=== PATIENT | female | born 1980 | race Caucasian/White ===

== ENCOUNTER 2017-09-04 08:35 | Emergency (ER) | payer BC, OTHER ==
[~2017-09-04] VITALS: Ht 177.8 cm; Wt 70.0 kg
[~2017-09-04 08:35] MED LIST: BCPILLS PO; KFLUNK; SERT-234 PO; SERT50TA PO
[2017-09-04 08:38] VITALS: TEMP 36.3; Ht 177.8 cm; Wt 70.0 kg
[2017-09-04] MEDS ORDERED: OXYCODONE/ACETAMINOPHEN 5-325 TAB PO STA (09:09)
[2017-09-04] MEDS ORDERED: CETI10TA84 PO (09:46)
[2017-09-04] MEDS ORDERED: METH-307 PO (09:46)
[2017-09-04] MEDS ORDERED: MULT-506 PO (09:46)
[2017-09-04] MEDS ORDERED: SERT-234 PO (09:46)
--- NOTE | 2017-09-04 10:08 | DIAGNOSTIC IMAGING REPORT ---
L-SPINE MIN 4 VIEWS ROUTINE CLINICAL HISTORY: Low back pain. Trauma. COMPARISON STUDY: No previous studies for comparison. FINDINGS: There is an S1 spina bifida occulta. No fractures are visualized. There is a grade 1 spondylolisthesis of L5 on S1.. IMPRESSION: No fractures identified. Electronically signed by: Faustino Segura M.D. 09/04/2017 10:07 AM Dictated Date/Time: 09/04/2017 10:06 AM
[2017-09-04] MEDS ORDERED: KETO10TA PO (10:56)
[2017-09-04] MEDS ORDERED: PRED20TA2 PO (10:56)
[2017-09-04 11:21] VITALS: BP 110/66; PULSE 50; O2SAT 97
--- NOTE | 2017-09-04 17:24 | EMERGENCY ROOM VISIT NOTE ---
ED Visit Note First contact with patient: 08:46 Chief Complaint: Nerve pain in the right hip. History of Present Illness: Ms. Cook is a 36-year-old white female who ambulates into the ED complaining of lumbar back pain. Historically patient reports she has no significant back disease or any recent trauma. She reports she has been having ongoing back pain since , 2 months ago. She was seen at her PCPs office approximately 14 days ago and reports that she was prescribed prednisone and Flexeril. She reports she immediately started having improved discomfort with these medications. She reports she finished her prednisone 2-3 days ago. Patient reports this morning she was picking up a laundry basket and had acute recurrence of lumbar back pain and right hip pain. This occurred approximately 2 hours before she arrived in the emergency department. Since that time her pain has been constant. She difficulty discussed making 1 description of her pain but does report it is sharp, stabbing, throbbing and burning. She places her discomfort in the L5-S1. Her pain radiates laterally to the right hip and extends down the posterior aspect of the leg to the knee. At its onset she reports her discomfort was 10/10 and currently she reports her discomfort is 4/ 10. Her pain worsens with sitting, waist flexion and extension and left lateral bending. She has not identified any alleviating factors related to her pain. She has not taken any medications for pain prior to arrival at the hospital. Associated with her pain she reports she was having some paresthesias throughout the entire extremity; when I questioned her about weakness she felt there might have been a little weakness with ambulation but had no difficulty with ambulation. She denies any new direct or repetitive trauma to the back, fevers, chills, sweats, skin eruptions, skin color changes, abdominal pain, nausea, vomiting, urinary symptoms, hematuria, genital paresthesias, bowel and bladder dysfunction. Review of Systems: As noted above in history of present illness. All body systems were reviewed and found to be negative as noted above. Past Medical History: As previously noted, anorexia. Current Medications: Zoloft, multivitamins, Zyrtec, Robaxin. Allergies to Medications: Patient denies. Social History: Patient is currently employed; she feels safe in her home environment; she denies tobacco and alcohol use. Physical Examination: Vital Signs: Date Time Temp Pulse Resp B/P (MAP) Pulse Ox O2 Delivery O2 Flow Rate FiO2 09/04/17 11:21 50 14 110/66 97 09/04/17 10:15 60 16 98 Room Air 09/04/17 08:38 36.3 54 98 115/68 96 Room Air GENERAL: 36-year-old female in moderate distress due to pain, nontoxic-appearing , afebrile and hemodynamically stable. NEUROLOGICAL: Awake, alert and oriented to person, place and time. Answering questions appropriately and following commands. Normal gait. Good hand eye coordination. No focal motor or sensory deficits. SKIN: Warm, dry and pink. No soft tissue eruptions or trauma noted. HEENT: Atraumatic and normocephalic. BACK: No tenderness over the bony thoracic and lumbar spine. No tenderness or spasm throughout the paraspinous muscles. No CVA tenderness. Negative straight leg raise test. THORAX: Lungs sounds are clear to auscultation and equal bilaterally with symmetrical chest wall. ABDOMEN: Flat, soft and nontender. Positive bowel sounds in all quadrants. No guarding, rigidity or organomegaly. LOWER EXTREMITIES: Moves extremities well on command and with purpose. 5/5 muscle strength in all movements of the hips, knees and ankles. 2+ patellar and Achilles deep tendon reflexes intact and equal bilaterally. She was able to distinguish light sensations through all dermatomes of the spine. No calf tenderness or cords. ED Course: Patient is assessed as noted above. Patient's medication list was reviewed. Patient was given 1 Percocet 5/325 mg tablet by mouth for pain. Lumbar Spine X-Rays: Were reviewed by myself and read by the radiologist showing S1 spina bifida occulta. No fractures. Grade 1 spondylolithiasis at L5 -S1. Patient was educated about today's findings and instructed on her treatment plan ; she verbalizes understanding and agreement with this plan. Clinical Impression: Lumbar back pain with radiculopathy affecting the right lower extremity. Grade 1 spondylolisthesis. Disposition: Patient discharged home in stable condition accompanied by her ; prior to departure she was reassessed and subjectively reported she was feeling better and rated her discomfort 2/10. Plan: Comfort measures were discussed with the patient including alternating acetaminophen and Toradol every 3 hours for pain, ice, proper moving and lifting techniques. Patient was prescribed prednisone 60 mg once a day for 5 days. Patient was encouraged to follow-up with PCP for recheck and possible referral to physical therapy, back specialist and/or MRI. Patient was encouraged to return the ED for worsening/uncontrolled pain, fevers , numbness/tingling of the rectal or genital areas, bowel and bladder dysfunction, lower extremity weakness or any new/concerning symptoms.
[2017-09-05] MEDS ORDERED: PRED20TA2 PO (05:45)
[2017-09-05] MEDS ORDERED: KETO10TA PO (05:45)
[2017-09-05] MEDS ORDERED: SERT100T PO (05:45)
[2017-09-07] MEDS ORDERED: KETO10TA PO (07:54)
[2017-09-07] MEDS ORDERED: HYDR-4383 PO (07:55)
[2017-09-07] MEDS ORDERED: NRN/300 PO (07:56)
== END 2017-09-04 11:22 | disposition home or self-care (01) ==
LOC: C.EDB 08:36
DX: M43.17 Spondylolisthesis, lumbosacral region (principal); M54.17 Radiculopathy, lumbosacral region

== ENCOUNTER 2017-09-05 05:17 | Inpatient (IN) | payer OTHER ==
[~2017-09-05] VITALS: Ht 172.7 cm; Wt 63.2 kg
[~2017-09-05 05:17] MED LIST changes: -BCPILLS PO; +CETI10TA84 PO; +KETO10TA PO; -KFLUNK; +METH-307 PO; +MULT-506 PO; +PRED20TA2 PO; -SERT50TA PO
[2017-09-05] MEDS ORDERED: MoRPHine SULFATE 4 MG/ML 1 ML CARP\\VIAL IV STA ×4 (05:30→13:09)
[2017-09-05] MEDS ORDERED: ONDANSETRON INJ 2 MG/ML 2 ML VIAL IV STA (05:30)
[2017-09-05 05:43] LABS: BASO % 0.3 %; BASO ABS # 0.04 K/uL (0-0.2); EOS % 0.2 %; EOS ABS # 0.03 K/uL (0-0.5); HEMATOCRIT 39.6 % (37-47); HEMOGLOBIN 13.6 g/dL (12.0-16.0); IG# 0.03 K/uL (0.00-0.02); LYMPH % 18.9 %; LYMPH ABS # 2.29 K/uL (1.2-3.4); MEAN CELL VOLUME 92.3 fL (80-100); MEAN CORPUSCULAR HEMOGLOBIN 31.7 pg (25-34); MEAN CORPUSCULAR HGB CONC 34.3 g/dl (32-36); MEAN PLATELET VOLUME 9.9 fL (7.4-10.4); MONO % 9.3 %; MONO ABS # 1.13 K/uL (0.11-0.59); NEUT % 71.1 %; NEUT ABS # 8.57 K/uL (1.4-6.5); PLATELET COUNT 236 K/uL (130-400); RED CELL DISTRIBUTION WIDTH CV 12.6 % (11.5-14.5); RED CELL DISTRIBUTION WIDTH SD 42.5 fL (36.4-46.3); WHITE BLOOD COUNT 12.09 K/uL (4.8-10.8)
[2017-09-05] MEDS ORDERED: PRED20TA2 PO (05:45)
[2017-09-05] MEDS ORDERED: KETO10TA PO (05:45)
[2017-09-05] MEDS ORDERED: SERT100T PO (05:45)
[2017-09-05 05:57] LABS: CALCIUM 9.2 mg/dl (8.5-10.1); CREATININE 0.95 mg/dl (0.60-1.20); POTASSIUM 2.9 mmol/L (3.5-5.1)
[2017-09-05] MEDS ORDERED: KETOROLAC TROMETHAMINE 30 MG/ML VIAL IV STA (06:00)
[2017-09-05] MEDS ORDERED: POTASSIUM CHLORIDE 10 MEQ TABCR PO STA (06:01)
--- NOTE | 2017-09-05 07:55 | DIAGNOSTIC IMAGING REPORT ---
LUMBAR SPINE W/O CONTRAST CLINICAL HISTORY: 36 years-old Female with severe LBP down right leg, dif walking. Acute low back pain with radiation into the right lower extremity COMPARISON: Lumbar spine radiographs 09/04/2017. TECHNIQUE: Multiplanar, multi sequence MRI of the lumbar spine was performed without intravenous contrast. FINDINGS: There is no focal bone marrow edema, acute fracture or subluxation. 2.4 x 2.2 cm partially imaged cystic lesion is noted within the region of the right adnexum suggesting ovarian follicle. Mild amount of fluid is also seen within the endometrial canal with mild to moderate free pelvic fluid, notably within the cul-de-sac. Mild urinary bladder distention. No adenopathy or aortic aneurysm identified. Signal within the visualized thoracic spinal cord is unremarkable. Conus medullaris terminates at the T12-L1 level. 1 mm lipoma of the filum terminale is noted. No definite evidence of cord tethering. T12-L1: No central canal or neural foraminal stenosis. L1-L2: No central canal or neural foraminal stenosis. L2-L3: No central canal or neural foraminal stenosis. L3-L4: Mild disc desiccation with posterior annular disc bulge and broad-based central disc protrusion which flattens the ventral thecal sac and causes mild central canal narrowing. This abuts the bilateral L4 nerve roots without significant foraminal narrowing. L4-L5: Mild disc desiccation with small circumferential annular disc bulge. Additionally, there is a right paracentral/right lateral recess disc extrusion which extends 6 mm caudally to level of the mid L5 vertebral body nicely seen on image 6 series 3 and image 19 series 6 measuring up to 10 x 6 mm in transverse and AP dimension. These findings cause flattening of the ventral thecal sac without significant central canal narrowing. There is severe right lateral recess stenosis with abutment and displacement of the right L5 nerve root. Additionally, there is resultant mild bilateral foraminal narrowing. L5-S1: Small posterior disc bulge flattens the ventral thecal sac without significant central canal or left foraminal narrowing. There is mild right foraminal stenosis. IMPRESSION: 1. Small circumferential annular disc bulge at L4-L5 with right paracentral/right lateral recess disc extrusion flattens the ventral thecal sac without significant central canal narrowing. This does however cause severe right lateral recess stenosis with abutment and displacement of the right L5 nerve root. Mild bilateral foraminal stenosis is also present at this level. 2. Mild central canal narrowing at L3-L4 secondary to small posterior disc bulge with central broad-based disc protrusion. 3. Small posterior disc bulge at L5-S1 causes mild right foraminal narrowing. 4. 1 mm lipoma of the filum terminale. 5. Partially imaged cystic lesion of the right adnexum measuring up to 2.4 cm suggests dominant follicle with likely physiologic associated free pelvic and endometrial fluid. The above report was generated using voice recognition software. It may contain grammatical, syntax or spelling errors. Electronically signed by: Clyde Kemp M.D. 09/05/2017 7:54 AM Dictated Date/Time: 09/05/2017 7:29 AM
[2017-09-05] MEDS ORDERED: MoRPHine SULFATE 2 MG/ML CARP ONE ×3 (08:06→13:17)
[2017-09-05] MEDS ORDERED: DEXAMETHASONE INJ 10 MG in SYRINGE 0 ML IV STA (08:13)
[2017-09-05] MEDS ORDERED: DEXAMETHASONE **PF** INJ 10 MG/ML VIAL ONE (08:19)
--- NOTE | 2017-09-05 09:22 | EMERGENCY ROOM VISIT NOTE ---
ED Visit Note First contact with patient: 08:28 Patient was signed out to me at shift change by Rema Carnes PA-C. This was pending MRI results of the lumbar spine. Results do reveal findings consistent with that of the patient's clinical presentation. I did elect to discuss this with the on-call shipping and receiving specialist, Dr. La. In addition to the pain medication provided earlier, I did give her additional morphine. She does have difficulty in ambulating secondary to the amount of pain she is experiencing in the low back radiating down her right leg. Upon my reexamination she was found to be neurovascularly intact. After several rounds of pain medication intravenously, the patient was still experiencing a large amount of pain. It was identified that the patient likely would benefit from inpatient management of her pain and presentation here today. Dr. La (shipping and receiving specialist) came to evaluate the patient and admitted the patient for further evaluation and management.
[2017-09-05] MEDS ORDERED: HYDROmorphone INJ 1 MG/ML SYR IV PRN (13:15)
[2017-09-05] MEDS ORDERED: OXYCODONE/ACETAMINOPHEN 5-325 TAB PO PRN (13:15)
[2017-09-05 13:45] VITALS: O2SAT 96; Ht 172.7 cm; Wt 63.2 kg
[2017-09-05] MEDS: ACETAMINOPHEN IV 1,000 MG in EMPTY BAG 0 ML IV SCH ×2 (15:15→21:24)
[2017-09-05 15:52] VITALS: BP 108/65; PULSE 75; TEMP 36.8; O2SAT 96
[2017-09-05] MEDS: LACTATED RINGER'S 1000ML 1,000 ML IV SCH (16:42)
[2017-09-05] MEDS: DEXAMETHASONE INJ 8 MG in SYRINGE 0 ML IV SCH ×2 (16:43→23:36)
[2017-09-05] MEDS: METHOCARBAMOL 750 MG TAB PO SCH ×3 (17:14→23:36)
--- NOTE | 2017-09-05 17:30 | HISTORY & PHYSICAL EXAMINATION ---
DATE OF ADMISSION: 09/05/2017 CHIEF COMPLAINT: Back pain, lower extremity difficulty with radicular right leg pain. HISTORY OF PRESENT ILLNESS: Ely is delightful, I know her from the hospital. Her pain was ____ severe 04/19, came to Emergency Room, unable to sleep, unable to ambulate and I have admitted her to the hospital here today in the afternoon. She was working out with some exercise equipment ____ few weeks ago, progressed increasing back and lower extremity difficulty. She was lifting laundry yesterday when the symptoms became full blown. PAST MEDICAL HISTORY: Listed. SOCIAL HISTORY: Nonsmoker, non-ET[employer] user. , lives with family. MEDICATIONS: Listed. REVIEW OF SYSTEMS: Denies any blurred vision, double vision, tinnitus, vertigo. Denies chest pain, palpitations. No angina, wheezing. No nausea, vomiting. No urgency or frequency. No loss of bowel and bladder function. OBJECTIVE: VITAL SIGNS: Blood pressure 113/72, pulse regular at 52 beats per minute, respirations 16, afebrile. SKIN/INTEGUMENTARY: Normal. NECK: Supple. Pharynx midline. CARDIAC: Normal S1, S2. No S3. LUNGS: Clear. ABDOMEN: Soft, nontender, no rigidity. She has back pain, lower extremity difficulty, pain with straight leg raising on the right. She has weakness of great toe 4/5 on the right, 5/5 on the left. She has decreased knee jerk reflex, 1/4 on the right, 2/4 on the left. Images demonstrate a large disc herniation of lumbar spine L4-L5. ASSESSMENT: Delightful young lady who is 36 with a disk herniation, lumbar spine with great toe weakness. Otherwise healthy. DISPOSITION: Includes instructions, precautions, education, hospital admission, IV medication ____ her on some Decadron, Toradol, Neurontin and medication for breakthrough pain. Pending pain management see her and she might be a good candidate for some outpatient epidural steroid injections and we will try to manage her conservatively. There is a chance that she will need surgical intervention.
[2017-09-05] MEDS: DOCUSATE SODIUM 100 MG CAP PO SCH (21:23)
[2017-09-05] MEDS: GABAPENTIN 300 MG CAP PO SCH (21:23)
[2017-09-05] MEDS: KETOROLAC TROMETHAMINE 10 MG TAB PO PRN (21:24)
[2017-09-05 23:02] VITALS: BP 100/62; PULSE 78; TEMP 36.3; O2SAT 94
[2017-09-06] MEDS: LACTATED RINGER'S 1000ML 1,000 ML IV SCH ×2 (03:22→17:08)
[2017-09-06] MEDS: METHOCARBAMOL 750 MG TAB PO SCH ×3 (03:31→12:46)
--- NOTE | 2017-09-06 04:18 | EMERGENCY ROOM VISIT NOTE ---
History First contact with patient: 05:26 Chief Complaint: OTHER COMPLAINT Stated Complaint: NERVE DAMAGE,TINGLING EVERYWHERE History of Present Illness The patient is a 36 year old female who presents to the Emergency Room with complaints of severe back pain that radiates down her right leg now having difficulty walking on this leg for the past day. She describes the pain as severe, 10 out of 10 worse with movement and better with rest. Patient was unable to sleep last night secondary to the pain. Patient was seen here yesterday and given prednisone and Toradol. Patient states just prior to getting here, she started feeling tingly all over and now this is just located to her right lower leg. Patient was quite anxious appearing when I did evaluate her. She was hyperventilating and almost in tears secondary to the pain. Patient has had a history of back pain but nothing down the leg or the severe in the past. Patient states yesterday she was lifting up laundry when the symptoms started. There was no fall or trauma. Patient denies chest pain, dyspnea, fever, chills, IV drug abuse, loss of bowel or bladder control, saddle anesthesia, leg swelling, numbness, abdominal pain. No chance of . Review of Systems An 10 system review of systems was completed with positives and pertinent negatives listed in the HPI. Past Medical/Surgical History Medical Problems: (1) Lumbar disc herniation Anorexia, back pain Social History Smoking Status: Never Smoker Smokeless Tobacco Use: No Alcohol Use: none Drug Use: none Marital Status: Housing Status: lives with family Current/Historical Medications Scheduled Cetirizine (Zyrtec), 10 MG PO DAILY Methocarbamol (Robaxin), 750 MG PO Q4 Multivitamin (Multivitamin), 1 TAB PO DAILY Prednisone (Prednisone Tab), 60 MG PO DAILY Sertraline Hcl (Zoloft), 100 MG PO DAILY Scheduled PRN Ketorolac Tromethamine (Toradol), 10 MG PO Q6H PRN for Pain Physical Exam Vital Signs Date Time Temp Pulse Resp B/P (MAP) Pulse Ox O2 Delivery O2 Flow Rate FiO2 09/05/17 12:10 52 09/05/17 12:00 51 16 110/53 96 Room Air 09/05/17 11:00 50 12 115/79 95 Room Air 09/05/17 10:29 55 16 111/64 95 Room Air 2/26/18 09:00 52 14 94/62 99 Room Air 09/05/17 08:00 49 12 102/69 99 Room Air 09/05/17 07:25 50 12 106/68 95 Room Air 09/05/17 06:25 38 09/05/17 06:17 52 12 100 Nasal Cannula 2.0 09/05/17 06:08 48 09/05/17 06:01 99/65 09/05/17 05:53 45 09/05/17 05:47 49 16 98 09/05/17 05:42 113/72 09/05/17 05:42 48 16 113/72 99 Nasal Cannula 4.0 09/05/17 05:40 79 Room Air 09/05/17 05:33 52 09/05/17 05:30 36.6 51 20 116/67 100 Room Air 09/05/17 05:22 116/67 Physical Exam VITALS: Vitals are noted on the nurse's note and reviewed by myself. Vital signs stable. GENERAL: White female writhing in pain, in no acute distress, nondiaphoretic, well-developed well-nourished. SKIN: Capillary reflex less than 2 seconds. HEENT: Normocephalic. PERRLA. EOMI. Nares patent. Mucous membranes moist. Neck is supple without nuchal rigidity. HEART: Regular rate and rhythm without murmurs gallops or rubs. LUNGS: Clear to auscultation bilaterally without wheezes, rales or rhonchi. No retractions or accessory muscle use. ABDOMEN: Positive bowel sounds x 4. Normal tympanic percussion. Soft, nontender, without masses or organomegaly. Ravi sign negative. No guarding or rebound tenderness. MUSCULOSKELETAL: No gross musculoskeletal defects. No pedal edema. No calf tenderness. No thoracic or lumbar tenderness on exam. Positive straight leg raise on the right. Negative on the left. Patient can plantarflex and dorsiflex. Patient states she is unable to ambulate secondary to the pain. NEURO: Patient was alert and oriented to person place and time. Normal sensation to light and sharp touch. Deep tendon reflexes 2+ patella and Achilles bilaterally. No focal neurological deficits. Medical Decision & Procedures Laboratory Results 09/05/17 05:32 Red Blood Count 4.29, Mean Corpuscular Volume 92.3, Mean Corpuscular Hemoglobin 31.7, Mean Corpuscular Hemoglobin Concent 34.3, Mean Platelet Volume 9.9, Neutrophils (%) (Auto) 71.1, Lymphocytes (%) (Auto) 18.9, Monocytes (%) (Auto) 9.3, Eosinophils (%) (Auto) 0.2, Basophils (%) (Auto) 0.3, Neutrophils # (Auto) 8.57, Lymphocytes # (Auto) 2.29, Monocytes # (Auto) 1.13, Eosinophils # (Auto) 0.03, Basophils # (Auto) 0.04 09/05/17 05:32 Test 09/05/17 05:32 09/05/17 13:00 White Blood Count 12.09 K/uL (4.8-10.8) Red Blood Count 4.29 M/uL (4.2-5.4) Hemoglobin 13.6 g/dL (12.0-16.0) Hematocrit 39.6 % (37-47) Mean Corpuscular Volume 92.3 fL (80-100) Mean Corpuscular Hemoglobin 31.7 pg (25-34) Mean Corpuscular Hemoglobin Concent 34.3 g/dl (32-36) Platelet Count 236 K/uL (130-400) Mean Platelet Volume 9.9 fL (7.4-10.4) Neutrophils (%) (Auto) 71.1 % Lymphocytes (%) (Auto) 18.9 % Monocytes (%) (Auto) 9.3 % Eosinophils (%) (Auto) 0.2 % Basophils (%) (Auto) 0.3 % Neutrophils # (Auto) 8.57 K/uL (1.4-6.5) Lymphocytes # (Auto) 2.29 K/uL (1.2-3.4) Monocytes # (Auto) 1.13 K/uL (0.11-0.59) Eosinophils # (Auto) 0.03 K/uL (0-0.5) Basophils # (Auto) 0.04 K/uL (0-0.2) RDW Standard Deviation 42.5 fL (36.4-46.3) RDW Coefficient of Variation 12.6 % (11.5-14.5) Immature Granulocyte % (Auto) 0.2 % Immature Granulocyte # (Auto) 0.03 K/uL (0.00-0.02) Anion Gap 13.0 mmol/L (3-11) Est Creatinine Clear Calc Drug Dose 80.9 ml/min Estimated GFR () 88.7 Estimated GFR (Non- 76.5 BUN/Creatinine Ratio 12.3 (10-20) Calcium Level 9.2 mg/dl (8.5-10.1) Human Chorionic Gonadotropin, Qual NEG (NEG) Urine Color YELLOW Urine Appearance CLEAR (CLEAR) Urine pH 7.0 (4.5-7.5) Urine Specific [place] 1.010 (1.000-1.030) Urine Protein NEG (NEG) Urine Glucose (UA) NEG (NEG) Urine Ketones NEG (NEG) Urine Occult Blood NEG (NEG) Urine Nitrite NEG (NEG) Urine Bilirubin NEG (NEG) Urine Urobilinogen NEG (NEG) Urine Leukocyte Esterase NEG (NEG) Medications Administered Medications (Trade) Dose Ordered Sig/Sole Route Start Time Stop Time Status Last Admin Dose Admin Morphine Sulfate (MoRPHine SULFATE INJ) 4 mg NOW STAT IV 09/05/17 05:30 09/05/17 05:33 DC 09/05/17 05:39 4 MG Ondansetron HCl (Zofran Inj) 4 mg NOW STAT IV 09/05/17 05:30 09/05/17 05:33 DC 09/05/17 05:40 4 MG Ketorolac Tromethamine (Toradol Inj) 15 mg NOW STAT IV 09/05/17 06:00 09/05/17 06:01 DC 09/05/17 06:19 15 MG Potassium Chloride (Klor-Con M10) 40 meq NOW STAT PO 09/05/17 06:01 09/05/17 06:02 DC 09/05/17 06:18 40 MEQ Morphine Sulfate (MoRPHine SULFATE INJ) 2 mg STK-MED ONCE .ROUTE 09/05/17 08:06 09/05/17 08:07 DC 09/05/17 08:09 2 MG Dexamethasone Sodium Phosphate (Dexamethasone Inj Pf) 10 mg STK-MED ONCE .ROUTE 09/05/17 08:19 09/05/17 08:20 DC 09/05/17 08:22 10 MG Morphine Sulfate (MoRPHine SULFATE INJ) 2 mg STK-MED ONCE .ROUTE 09/05/17 10:30 09/05/17 10:31 DC 09/05/17 10:34 2 MG Lactated Ringer's 1,000 ml @ 75 mls/hr [id number] IV 09/05/17 13:10 10/05/17 13:09 09/06/17 03:22 75 MLS/HR ED Course Prior records/ancillary studies reviewed. Triage Nursing notes reviewed. Additional history obtained from family The patient's history was concerning for back pain. Differential diagnosis: Etiologies such as musculoskeletal, disc herniation, fracture, aortic disease, metastatic disease, cord compression, discitis, infection, renal colic, gastrointestinal, acute exacerbation of chronic back pain, sciatica, cauda equina, as well as others were entertained. Physical findings: As above. No focal neurologic findings noted. ER treatment provided: Morphine, Zofran and oxygen. Patient did desat but came out nicely on oxygen secondary to narcotics Potassium On reassessment the patient felt better. Diagnostics interpreted by me: The labs revealed mild leukocytosis. Stable H&H Hypokalemia and this was replaced orally, hyperglycemia without DKA Imaging studies: MRI pending at time of signout This appears to be consistent with lumbar radiculopathy. Patient was in severe pain and had difficulty with ambulating so imaging was ordered. Patient was not incontinent. She is able to plantarflex and dorsiflex without issue. She was neurovascularly and neurologically intact. By chart review, patient is normally bradycardic between the mid 40s to mid 50s. Patient states this is baseline for her. Case is signed at to ADILSON Kidd, pending reevaluation and MRI in stable condition. Medical Decision As above [place] Drug Monitoring Program Search Results: patient reviewed within database, no issues identified Medication Reconcilliation Current Medication List: was personally reviewed by me Blood Pressure Screening Patient's blood pressure: Normal blood pressure Impression Primary Impression: Lumbar radiculopathy, acute Additional Impressions: Hypokalemia Hyperglycemia Departure Information Referrals Fred Tripp M.D.([facility]) (PCP) Patient Instructions My [facility] Additional Instructions Problem Qualifiers
[2017-09-06] MEDS: ACETAMINOPHEN IV 1,000 MG in EMPTY BAG 0 ML IV SCH ×3 (05:43→21:13)
[2017-09-06 07:27] VITALS: BP 108/63; PULSE 51; TEMP 36.5; O2SAT 94
[2017-09-06] MEDS: KETOROLAC TROMETHAMINE 10 MG TAB PO PRN (07:46)
[2017-09-06] MEDS: DEXAMETHASONE INJ 8 MG in SYRINGE 0 ML IV SCH (08:25)
[2017-09-06] MEDS: MULTIVITAMIN TAB PO SCH (09:28)
[2017-09-06] MEDS: SERTRALINE HCL 100 MG TAB PO SCH (09:28)
[2017-09-06] MEDS: GABAPENTIN 300 MG CAP PO SCH ×3 (09:28→21:14)
[2017-09-06] MEDS: DOCUSATE SODIUM 100 MG CAP PO SCH ×2 (09:28→21:14)
[2017-09-06] MEDS: CETIRIZINE HCL 10 MG TAB PO SCH (09:29)
--- NOTE | 2017-09-06 12:56 | ORTHOPEDICS PROGRESS NOTE ---
DATE: 09/06/2017 CHIEF COMPLAINT: Back and lower extremity difficulty, working diagnosis of a disk herniation at L4-L5. She is making. She has better motion, decreased pain, better functional ability, still has neurological deficit on her great toe. Images reviewed. ASSESSMENT: Disk herniation, lumbar spine, L4-L5. DISPOSITION: We will try to treat this conservatively. We are trying to avoid an operation ____ come to surgery, but trying to keep again conservative care. Got pain medication involved, multiple medications on the floor ____ and hopefully get her discharged home tomorrow, which would be Tuesday.
--- NOTE | 2017-09-06 14:38 | Pain Management Consultation ---
Pain Management Consultation Date of Consultation Sep 06, 2017. Reason for Consultation Evaluation for interventional therapy for radicular pain Pain Location 1 - Right lateral thigh pain. 2 - Mild distal lumbar spine pain History Ely Cook. Is a 36-year-old [] who is admitted to [facility] with complaints of experiencing acute worsening of right lower extremity radicular pain that started sometime in June 2016 when she was performing exercises using a kettle ball. Her symptoms improved gradually with chiropractic treatment and use of mild [id number] analgesics and anti- inflammatory agents several days ago where she noted increased, acute onset of low back pain and right lower extremity radicular pain after she lifted to laundry baskets up a flight of stairs. Pain is located in predominantly in the right lateral thigh radiates to and posterior lateral aspect of the right calf up to the right ankle. Symptoms are characterized as burning sensation and paresthesia. Symptoms have been present with current intensity for the last 3 days. Activities that exacerbate patient's symptoms include standing up and weightbearing on the right lower extremity. Activities that alleviate patient' s symptoms include laying in supine, immobile position. Symptoms are rated as 8/10 on visual analog scale when severe and 4/10 when minimal. Current treatments include use of mild opiate analgesics, muscle relaxants and anti-inflammatory agents as well as steroid. Prior to her presentation to the emergency room active treatment and use of [id number] anti-inflammatory agents and analgesics without long-term significant efficacy. Reports mild neurological symptoms associated with the symptoms consisting of paresthesia in the right lateral thigh and weakness in dorsiflexion of the right toe. She denies any bowel bladder incontinence, saddle anesthesia, numbness, weakness or any other neurological symptoms. Past Medical: Denies any major past health history. Past Surgical: Denies any major past surgical history. 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 Q4H PRN PO 09/05/17 13:15 09/19/17 13:14 Future Hold Hydromorphone HCl (Dilaudid Inj) 1 mg Q4H PRN IV 09/05/17 13:15 09/19/17 13:14 Acetaminophen 1000 mg/Empty Bag 100 ml @ 400 mls/hr Q8 IV 09/05/17 15:15 10/05/17 15:14 09/06/17 05:43 400 MLS/HR Cetirizine HCl (zyrTEC TAB) 10 mg DAILY PO 09/06/17 09:00 10/06/17 08:59 Ketorolac Tromethamine (Toradol Tab) 10 mg Q6H PRN PO 09/05/17 13:15 09/10/17 13:14 09/06/17 07:46 10 MG Methocarbamol (Robaxin Tab) 750 mg Q4 PO 09/05/17 16:00 10/05/17 15:59 09/06/17 03:31 750 MG Multivitamins (Multivitamin Tab) 1 tab DAILY PO 09/06/17 09:00 10/06/17 08:59 Sertraline HCl (Zoloft Tab) 100 mg DAILY PO 09/06/17 09:00 10/06/17 08:59 Gabapentin (Neurontin Cap) 300 mg TID PO 09/05/17 21:00 10/05/17 20:59 09/05/17 21:23 300 MG Review of Systems Denies any recent history of fever, night sweats, unexplained weight loss, or constitutional symptoms. Otherwise, 8 point review of system has been reported to be negative. Physical Exam Height & Weight: Height 5 feet, 8.00 inches. Weight 63.200 (Kilograms) 139 (Pounds) Last Vital Signs Documentation Date Time Temp Pulse Resp B/P (MAP) Pulse Ox O2 Delivery O2 Flow Rate FiO2 09/06/17 07:27 36.5 51 16 108/63 (78) 94 Room Air 09/05/17 06:17 2.0 Exam: GENERAL: Josef Cook is awake, alert and oriented. Appears well developed. She is in no distress at the present time. Appears conditioned. BMI is 21.2 kg /m2. PSYCHIATRIC: Mood appears to be normal. Demonstrates normal affect. Short- term memory is intact. Long-term memory is intact. Judgment is intact. VASCULAR: Peripheral pulses are symmetrical in the lower extremities. No distal edema noted. MUSCULOSKELETAL: Inspection of the lumbar spine demonstrates normal curvatures. Range of motion of the lumbar spine in all planes is unremarkable. No lesions are noted in the lumbar spine region. Palpation of the spinous processes intraspinal ligaments demonstrates no pain. Provocative testing of the facet joints produces. No diffuse myofascial tenderness. No trigger points identifiable in the paraspinous musculature. Inspection of major joints of the lower demonstrates no gross deformity or edema. Active and passive range of motion of lower extremity is unrestricted. SKIN: Appears unremarkable, without any lesions NEUROLOGICAL: Sensory exam demonstrates intact sensation to light toch without deficits. Motor exam demonstrates symmetrical strength without deficit. No pathologic reflexes are noted in the lower extremities. Straight leg rasing maneuver is marginally positive on the right side at 45. Mild change is noted with Achilles noticed no linagliptin well stretch. No pathologic reflexes are noted. Gait is unremarkable. Reflexes: Patellar L +2 R +2 Ankle L +2 R +2 Laboratory Laboratory Results (Last CBC): 09/05/17 05:32 Imaging MRI: non enhanced, reports reviewed MRI Findings LUMBAR SPINE: IMPRESSION: 1. Small circumferential annular disc bulge at L4-L5 with right paracentral/right lateral recess disc extrusion flattens the ventral thecal sac without significant central canal narrowing. This does however cause severe right lateral recess stenosis with abutment and displacement of the right L5 nerve root. Mild bilateral foraminal stenosis is also present at this level. 2. Mild central canal narrowing at L3-L4 secondary to small posterior disc bulge with central broad-based disc protrusion. 3. Small posterior disc bulge at L5-S1 causes mild right foraminal narrowing. 4. 1 mm lipoma of the filum terminale. 5. Partially imaged cystic lesion of the right adnexum measuring up to 2.4 cm suggests dominant follicle with likely physiologic associated free pelvic and endometrial fluid. The above report was generated using voice recognition software. It may contain grammatical, syntax or spelling errors. Electronically signed by: Clyde Kemp M.D. 09/05/2017 7:54 AM Dictated Date/Time: 09/05/2017 7:29 AM [place] Drug Monitoring Program Search Results: patient reviewed within database Opioid Risk Assessment Risk assessment performed Assessment 1. Herniated lumbar disc with radicular pain. Recommendations 1. L4/L5 right-sided transforaminal epidural change as an outpatient. This can be performed as an outpatient immediately a day or 2 after discharge. Potential risks including infection, bleeding, nerve injury, persistent pain at the injection site, reaction to any one of the medication used for the procedure , possibly of postdural puncture headache as well as persistent symptoms after the procedure were discussed with the patient. Alternatives to this procedure were also discussed with the patient. Patient's questions were answered. Patient gave informed consent. 2. Patient can be discharged on mild opiate analgesics such as hydrocodone 5/ 325 1 tab every 6 hours as needed with 2-3 days prescription and gabapentin 300 mg p.o. 3 times daily. 3. Recommend discontinue muscle relaxant as it is not effective and patient is not experiencing any spasms present time. 4. Orders written.
[2017-09-06 15:16] VITALS: BP 103/63; PULSE 54; TEMP 36.7; O2SAT 97
[2017-09-06] MEDS: HYDROCODONE/ACETAMIN 5/325MG TAB PO PRN (17:09)
[2017-09-06] MEDS ORDERED: GABAPENTIN 300 MG CAP PO SCH (21:00)
[2017-09-06 23:48] VITALS: BP 102/60; PULSE 50; TEMP 36.7; O2SAT 95
[2017-09-07] MEDS: LACTATED RINGER'S 1000ML 1,000 ML IV SCH ×2 (05:55→19:02)
[2017-09-07] MEDS: ACETAMINOPHEN IV 1,000 MG in EMPTY BAG 0 ML IV SCH ×5 (05:56→22:00)
[2017-09-07] MEDS: HYDROCODONE/ACETAMIN 5/325MG TAB PO PRN ×3 (06:06→22:07)
[2017-09-07] MEDS: SERTRALINE HCL 100 MG TAB PO SCH (07:45)
[2017-09-07] MEDS: MULTIVITAMIN TAB PO SCH (07:45)
[2017-09-07] MEDS: GABAPENTIN 300 MG CAP PO SCH ×3 (07:46→20:51)
[2017-09-07] MEDS: DOCUSATE SODIUM 100 MG CAP PO SCH ×2 (07:46→20:51)
[2017-09-07] MEDS: CETIRIZINE HCL 10 MG TAB PO SCH (07:46)
[2017-09-07] MEDS ORDERED: KETO10TA PO (07:54)
[2017-09-07] MEDS ORDERED: HYDR-4383 PO (07:55)
[2017-09-07] MEDS ORDERED: NRN/300 PO (07:56)
--- NOTE | 2017-09-07 07:57 | Discharge Instructions ---
Discharge Instructions Date of Service Sep 07, 2017. Admission Reason for Admission: Low Back Pain And Radiculopathy To Right Leg Discharge Discharge Diagnosis / Problem: same Discharge Goals Goal(s): Improve function Activity Recommendations Activity Limitations: as noted below Lifting Limitations: gradually increase as tolerated May Resume Sexual Activity: after follow-up appointment . Current Hospital Diet Patient's current hospital diet: Discharge Diet Recommended Diet: Regular Diet Pending Studies Studies pending at discharge: no Medical Emergencies . Who to Call and When: Medical Emergencies: If at any time you feel your situation is an emergency, please call 911 immediately. . Non-Emergent Contact Non-Emergency issues call your: Primary Care Provider . "Provider Documentation" section prepared by Sourav La. . VTE Core Measure Inpt VTE Proph given/why not?: Treatment not indicated
[2017-09-07 08:00] VITALS: BP 94/66; PULSE 48; TEMP 36.5; O2SAT 96
[2017-09-07 08:10] VITALS: O2SAT 96
--- NOTE | 2017-09-07 09:55 | ORTHOPEDICS PROGRESS NOTE ---
DATE: 09/07/2017 SUBJECTIVE: Josef is doing poorly today. She had increasing pain from yesterday. As of Tuesday, she had improvement. As of today, she has minimal improvement. She is still weak in the great toe, pain with straight leg raising as well. OBJECTIVE: She is alert, oriented. No bowel and bladder consequences. Images reviewed. 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 PLAN: Surgery is probably the best option for her overall and medically supported. She would like to pursue nonsurgical pathway, which is certainly abnormal bowl and I will honor that. We are trying to get her home and get an epidural steroid tomorrow as an outpatient. I am trying to discharge her home on [place], Neurontin, and Toradol ____ accomplish these tasks, she will have to have surgical intervention. This will be scheduled sometime in the not too distant future.
[2017-09-07 13:00] VITALS: BP 94/60; PULSE 48; TEMP 36.6; O2SAT 97
--- NOTE | 2017-09-07 14:41 | Orthopedic Consultation ---
Orthopedic Consultation Date of Consultation: Sep 07, 2017. Attending Physician: Sourav La DO Reason for Consultation: Back and right leg pain History of Present Illness This is a very pleasant 36-year-old female. She presents to the emergency room on Tuesday afternoon with the onset of severe right sided radiculopathy. It was incapacitating in nature. She was unable to ambulate secondary to the pain. Her symptoms are described as involving the right buttock posterior lateral thigh extending in the calf. Is markedly exacerbated by sitting. She is able to find some relief while lying perfectly supine and still. The left lower extremities asymptomatic. She is of a history of some intermittent back issues and has been managed by her chiropractor. This is been successful over the past into this recent event. Past Medical/Surgical History Medical Problems: (1) Hyperglycemia Status: Acute (2) Hypokalemia Status: Acute (3) Lumbar back pain with radiculopathy affecting right lower extremity Status: Acute (4) Lumbar radiculopathy, acute Status: Acute Social History Smoking Status: Never Smoker Smokeless Tobacco Use: No Alcohol Use: none Drug Use: none Marital Status: Housing Status: lives with family Occupation Status: employed Allergies Coded Allergies: No Known Allergies (Unverified , 09/05/17) Home Medications Scheduled Cetirizine (Zyrtec), 10 MG PO DAILY Gabapentin (Neurontin), 300 MG PO Q8 Ketorolac Tromethamine (Toradol), 10 MG PO Q6H Methocarbamol (Robaxin), 750 MG PO Q4 Multivitamin (Multivitamin), 1 TAB PO DAILY Prednisone (Prednisone Tab), 60 MG PO DAILY Sertraline Hcl (Zoloft), 100 MG PO DAILY Scheduled PRN Hydrocodone/Acetaminophen ([place] 10/325 Tab), 1-2 TABS PO Q6H PRN for Pain Ketorolac Tromethamine (Toradol), 10 MG PO Q6H PRN for Pain Current Inpatient Medications Current Inpatient Medications Medications (Trade) Dose Ordered Sig/Sole Route Start Time Stop Time Status Last Admin Dose Admin Lactated Ringer's 1,000 ml @ 75 mls/hr [id number] IV 09/05/17 13:10 10/05/17 13:09 09/07/17 05:55 75 MLS/HR Docusate Sodium (coLACE CAP) 100 mg BID PO 09/05/17 21:00 10/05/17 20:59 09/07/17 07:46 100 MG Hydromorphone HCl (Dilaudid Inj) 1 mg Q4H PRN IV 09/05/17 13:15 09/19/17 13:14 Acetaminophen 1000 mg/Empty Bag 100 ml @ 400 mls/hr Q8 IV 09/05/17 15:15 10/05/17 15:14 09/06/17 14:13 400 MLS/HR Cetirizine HCl (zyrTEC TAB) 10 mg DAILY PO 09/06/17 09:00 10/06/17 08:59 09/07/17 07:46 10 MG Multivitamins (Multivitamin Tab) 1 tab DAILY PO 09/06/17 09:00 10/06/17 08:59 09/07/17 07:45 1 TAB Sertraline HCl (Zoloft Tab) 100 mg DAILY PO 09/06/17 09:00 10/06/17 08:59 09/07/17 07:45 100 MG Gabapentin (Neurontin Cap) 300 mg TID PO 09/05/17 21:00 10/05/17 20:59 09/07/17 13:54 300 MG Acetaminophen/ Hydrocodone Bitart (Rudyard 5/325 Tab) 1 tab Q4HWA PRN PO 09/06/17 14:45 09/20/17 14:44 09/07/17 13:54 1 TAB Physical Exam Date Time Temp Pulse Resp B/P (MAP) Pulse Ox O2 Delivery O2 Flow Rate FiO2 09/07/17 13:00 36.6 48 19 94/60 (71) 97 Room Air 09/07/17 08:10 96 Room Air 09/07/17 08:00 36.5 48 21 94/66 (75) 96 Room Air 09/07/17 07:30 Room Air 09/06/17 23:59 Room Air 09/06/17 23:48 36.7 50 17 102/60 (74) 95 Room Air 09/06/17 15:40 Room Air 09/06/17 15:16 36.7 54 16 103/63 (76) 97 Room Air On physical exam she is alert and oriented and cooperative. She exhibits some decreased sensation to light touch on the right lower extremity compared to left. She exhibits a 4 over 5 right extensor hallucis longus compared 5 over 5 on the left. Otherwise her strength is symmetric and intact. She demonstrates evidence of contralateral straight leg raise sign on the left and a positive straight leg sign on the right. Assessment & Plan Assessment herniated nucleus pulposus L4 5 on the right. Plan at had a long discussion with this patient and her friend reviewing her MRI findings x-rays and clinical course. She does have pre-existing spondylolisthesis L5-S1. There is evidence of retrolisthesis and broad-based disc pronation at L4 5 with evidence of acute disc herniation fragment on the right with a component of caudal migration. This is creating significant compression of the L5 nerve root. At this time she is considering a trial epidural injections. Ultimately if these fail to provide any significant relief she may need to require surgery. The small procedure would be a laminectomy at L4 5 and left to address the herniated fragment. I did however emphasize concerns regarding recurrent disc herniation particularly in light of her rectal listhesis L4 5. If any further surgery were necessary would also require stabilization of the L5 -S1 level. Thank you for this consultation
[2017-09-07 15:08] VITALS: BP 109/66; PULSE 65; TEMP 36.8; O2SAT 93
[2017-09-07 15:51] VITALS: O2SAT 93
[2017-09-07 22:30] VITALS: BP 109/66; PULSE 58; TEMP 36.5; O2SAT 93
[2017-09-08] MEDS: ACETAMINOPHEN IV 1,000 MG in EMPTY BAG 0 ML IV SCH (05:42)
[2017-09-08] MEDS: HYDROCODONE/ACETAMIN 5/325MG TAB PO PRN ×2 (05:44→12:28)
[2017-09-08] MEDS: LACTATED RINGER'S 1000ML 1,000 ML IV SCH (07:11)
[2017-09-08 07:27] VITALS: BP 103/69; PULSE 45; TEMP 36.5; O2SAT 97
[2017-09-08] MEDS: GABAPENTIN 300 MG CAP PO SCH (09:00)
[2017-09-08] MEDS: MULTIVITAMIN TAB PO SCH (09:00)
[2017-09-08] MEDS: DOCUSATE SODIUM 100 MG CAP PO SCH (09:00)
[2017-09-08] MEDS: SERTRALINE HCL 100 MG TAB PO SCH (09:00)
[2017-09-08] MEDS: CETIRIZINE HCL 10 MG TAB PO SCH (09:00)
--- NOTE | 2017-09-08 09:27 | ORTHOPEDICS PROGRESS NOTE ---
DATE: 09/08/2017 SUBJECTIVE: She is slightly improved, was able to get up to the bathroom standing for about 3-4 minutes. She still has great toe weakness. Images reviewed with family, friends and staff. ASSESSMENT: Disk herniation, L4-L5 on the right. DISPOSITION: Will try to get her discharged home today. Dr. Fay and pain management hopefully can accommodate her for an epidural steroid injection. If we cannot get her home because of pain, we will keep her in the hospital and I will personally do an [facility].
--- NOTE | 2017-09-08 12:14 | Discharge Instructions ---
Discharge Instructions Date of Service Sep 08, 2017. Admission Reason for Admission: Nerve Damage,Tingling Everywhere Discharge Discharge Diagnosis / Problem: SAME ABVOVE Discharge Goals Goal(s): Decrease discomfort, Improve function Activity Recommendations Activity Limitations: as noted below Lifting Limitations: gradually increase as tolerated Exercise/Sports Limitations: until after follow-up appointment . Instructions / Follow-Up Instructions / Follow-Up MEDICATIONS: Please take your prescriptions as instructed at your pre-op appointment. SPECIAL CARE: The following information is intended to answer some of the common questions and concerns regarding your surgery. Each patient is an individual and receives individual counselling throughout the course of treatment, from diagnosis to surgery all the way through recovery. What follows is not an exhaustive list, but should be a useful guide to some of the common questions and concerns patients have regarding their surgeries. These are not provided to keep you from calling us; rather, they give you something accurate and concrete to reference as you recover from your procedure. If you need us, we are available to you. As always, if you are not sure about something, call us at [phone]. MEDICAL EMERGENCIES: For these conditions, call 911 or go to your local hospital-based Emergency Department - not [facility] or equivalent. * Paralysis * Severe chest pain or difficulty breathing * Swelling or redness of either leg Spine procedures can be rather complex and though complications are rare, they do occur. In such cases, effective advice regarding emergency situations cannot always be addressed over the telephone. You may be referred to the emergency department for more effective management of your problem. Activity Limitations: It is important to give your body time to heal, so please limit your activities : * In general, don't do anything that moves your spine too much. You should avoid contact sports, twisting or heavy lifting while you recover. * 5-10 pounds is all you should attempt to lift. * You should not plan on driving for approximately 3 weeks and you should avoid traveling more than 30-45 minutes at a time. Longer trips should be broken down with walking breaks spaced appropriately. * Physical therapy is not usually required. * Walking and good posture practices will help you recover and regain your function. * Avoid straining or sudden changes in position. * In general, the goal is to take it easy and recover. Don't cause any new problems. Just relax. Showers: * Do not take a bath, use a Jacuzzi or hot tub or otherwise submerge your incision. * It is usually safe to take a shower 4-5 days after your surgery. * Your incision does not require any special creams or ointments. * Simply clean it with soap and water, dry and re-dress with a clean bandage afterwards. Incision: * Keep incision clean, dry and protected until your first follow-up appointment. * Some amount of drainage and redness is normal. Any drainage should be fairly clear and not have a foul odor. * If you feel anything is wrong or you have excessive drainage, please call us. * Your stitches and pedro will be removed 10-14 days after your surgery. At the time of your first post-op visit. * Neck surgeries are typically closed with a suture underneath the skin. The steri-strips over the incision should be maintained until we see you in the office. Bracing: * You may be provided with a back or neck brace to encourage good posture and prevent injury. It will remind you not to do too much as you heal and will alert others to the fact that you have had a surgery. * Back braces may be removed for showers and when you are resting at home. They must be worn when you are walking around for any period of time or for travel. * For neck surgery, you will likely be provided with two cervical collars. The soft collar ([place] or foam rubber) is worn most commonly throughout the day and while sleeping. The plastic collar (provided at the hospital) is for showering/bathing. * Except while eating, collars should remain in place. More specifically, bracing is provided for a purpose and should be worn. * Please obtain your brace or collars prior to your operation and bring them to the hospital with you on the day of surgery. * You should also bring your collars to your post-op appointment with Dr. La. You should always take good care of your body and practice healthy habits, especially following surgery. You should: * Follow your doctor's treatment plan * Sit and stand properly with good posture (ears over shoulders, shoulders over hips) Don't slouch * Learn to lift correctly * Exercise regularly (low-impact aerobic exercise is especially good, but check with your doctor first) * Generally, be up and walking for 5-10 minutes at a time at least 3-4 times per day from the day you get home * Increasing walking to tolerance until you can walk for 20-30 minutes at a time * Attain and maintain a healthy body weight * Eat healthy foods ( a well-balanced, low-fat diet rich in fruits and vegetables) and get enough calcium * Avoid excessive use of alcohol When to call our office - If you notice any of the following: * Increased pain not relieve by pain medicine * Fevers greater then 100 degrees F, chills or flu symptoms * Increased redness around incision * Drainage from the incision that is not clear * Any foul smelling drainage * Swelling or fluid collection beneath the skin Miscellaneous: * In the hospital, you may be given a walker or cane for support while walking. These are temporary needs and are intended to prevent injuries due to falls. You may discontinue them when you feel strong and steady enough on your feet. * Sleep in a comfortable position. We find that many patients find a lounge chair or recliner with several pillows to be beneficial in the early post-operative period. * The support stockings should be used for 7-10 days and may be discontinued when you are back to walking more and conducting usual household activities. No problem is insignificant. We are here to help you and get you well. Contact us at [phone]. Definitions: Foraminotomy: If part of the disc or a bone spur (osteophyte) is pressing on a nerve as it leaves the vertebra (through an exit called the foramen), a foraminotomy may be done. Otomy means "to make an opening." A foraminotomy is making the opening of the foramen larger, so the nerve can exit without being compressed. Laminotomy: Similar to the foraminotomy, a laminotomy makes a larger opening, this time in your bony plate protecting your spinal canal and spinal cord (the lamina). The lamina may be pressing on your nerve, so the surgeon may make more room for the nerves using a laminotomy. Laminectomy: Sometimes, a laminotomy is not sufficient. The surgeon may need to remove all or part of the lamina. This procedure is called a laminectomy. This can often be done at many levels without any harmful effects. Current Hospital Diet Patient's current hospital diet: Regular Diet Discharge Diet Recommended Diet: Regular Diet Pending Studies Studies pending at discharge: no Medical Emergencies . Who to Call and When: Medical Emergencies: If at any time you feel your situation is an emergency, please call 911 immediately. . Non-Emergent Contact Non-Emergency issues call your: Primary Care Provider . "Provider Documentation" section prepared by Franko Haywood. . VTE Core Measure Inpt VTE Proph given/why not?: Treatment not indicated
[2017-09-08 12:19] VITALS: BP 103/69; PULSE 45; TEMP 36.5; O2SAT 97
== END 2017-09-08 12:38 | disposition home or self-care (01) | DRG 552 ==
LOC: C.EDB 05:17 → C.MSN 13:14 → ENRESERV 14:01
PROVIDERS: ADMIT Orthopaedic Surgery Orthopaedic Surgery of the Spine; ATTEND Orthopaedic Surgery Orthopaedic Surgery of the Spine
DX: M51.16 Intervertebral disc disorders with radiculopathy, lumbar region (principal); M43.16 Spondylolisthesis, lumbar region; M43.17 Spondylolisthesis, lumbosacral region